=== PATIENT | male | born 1955 | race Caucasian/White ===

== ENCOUNTER 2017-10-27 11:29 | Emergency (ER) | payer OTHER ==
[2017-10-27] MEDS: ASPIRIN ENTERIC COATED 325 MG TABLET.DR. PO (12:38)
[2017-10-27] MEDS: LIDO:MAALOX:DONNATAL 1:1:1 15 ML SINGLE DOSE SWSW (12:40)
[2017-10-27 13:01] LABS: ADD MAN DIFF? NO
[2017-10-27 13:02] LABS: BASO % 1 % (0-3); EOS # 0.1 x10^3/uL (0.0-0.7); EOS % 3 % (0-3); HEMATOCRIT 42.6 % (39.0-53.0); HEMOGLOBIN 14.8 g/dL (13.0-17.5); LYMPH # 1.7 x10^3/uL (1.0-4.8); LYMPH % 34 % (24-48); MEAN CORPUSCULAR HEMOGLOBIN 33 pg (25-35); MEAN CORPUSCULAR HGB CONC 35 g/dL (31-37); MEAN CORPUSCULAR VOLUME 93 fL (79-100); MONO # 0.5 x10^3/uL (0.0-1.1); MONO % 10 % (0-9); NEUT # 2.6 x10^3uL (1.8-7.7); NEUT % 53 % (31-73); PLATELET COUNT 244 x10^3/uL (140-400); RED BLOOD COUNT 4.56 x10^6/uL (4.30-5.70); WHITE BLOOD COUNT 4.9 x10^3/uL (4.0-11.0)
[2017-10-27 13:14] LABS: ANION GAP 11 (6-14); BLOOD UREA NITROGEN 11 mg/dL (8-26); BUN/CREATININE RATIO 11 (6-20); CALCIUM 9.3 mg/dL (8.5-10.1); CARBON DIOXIDE 25 mmol/L (21-32); CHLORIDE 103 mmol/L (98-107); GFR 75.5; GLUCOSE 86 mg/dL (70-99); POTASSIUM 4.1 mmol/L (3.5-5.1); SODIUM 139 mmol/L (136-145)
[2017-10-27 13:14] LABS: ETHANOL 169 mg/dL (0-10)
[2017-10-27 13:20] LABS: ALBUMIN/GLOBULIN RATIO 0.9 (1.0-1.7); ALK PHOS 64 U/L (46-116); ALT (SGPT) 23 U/L (16-63); AST (SGOT) 17 U/L (15-37); MAGNESIUM 2.4 mg/dL (1.8-2.4); TOTAL BILIRUBIN 0.3 mg/dL (0.2-1.0); TOTAL PROTEIN 8.5 g/dL (6.4-8.2)
[2017-10-27 13:23] LABS: TROPONINI < 0.017 ng/mL (0.000-0.055)
[2017-10-27 13:25] LABS: NT-PRO BNP 59 pg/mL (0-124)
== END 2017-10-27 14:55 | disposition home or self-care (01) ==
LOC: ER 11:29
DX: J06.9 Acute upper respiratory infection, unspecified (principal); I44.7 Left bundle-branch block, unspecified; R07.89 Other chest pain; I10 Essential (primary) hypertension; F10.10 Alcohol abuse, uncomplicated
CPT/HCPCS: 36415; 71045; 80053; 83735; 83880; 84484; 85025; 93005; 99285-25; G0480

== ENCOUNTER → 2017-11-22 | Outpatient (CLI) | payer OTHER ==
[~2017-11-22] MED LIST: CONTRAST GIVEN MC
[2017-11-22] MEDS: IOHEXOL 300 MG/ML 100ML VIAL. IV (12:56)
== END | disposition home or self-care (01) ==
LOC: KCIC CT 11:46
DX: J84.10 Pulmonary fibrosis, unspecified (principal); R91.8 Other nonspecific abnormal finding of lung field
CPT/HCPCS: 71260; Q9967

== ENCOUNTER 2019-10-16 00:03 | Emergency (ER) | payer OTHER ==
[~2019-10-16] VITALS: Ht 170.2 cm; Wt 79.5 kg
[~2019-10-16 00:03] MED LIST changes: +ASPI81TA50 PO; -CONTRAST GIVEN MC; +LISI-334 PO; +LISI10TA2 PO; +LISI2.5T PO; +NITR0.4T24 SL; +SIMV10TA15 PO
[2019-10-16 00:05] VITALS: BP 140/72
[2019-10-16 00:27] LABS: BASO % 1 % (0-3); EOS # 0.2 x10^3/uL (0.0-0.7); EOS % 3 % (0-3); HEMOGLOBIN 13.3 g/dL (13.0-17.5); LYMPH # 2.7 x10^3/uL (1.0-4.8); LYMPH % 42 % (24-48); MEAN CORPUSCULAR HEMOGLOBIN 32 pg (25-35); MEAN CORPUSCULAR HGB CONC 34 g/dL (31-37); MEAN CORPUSCULAR VOLUME 94 fL (79-100); MONO # 0.8 x10^3/uL (0.0-1.1); MONO % 13 % (0-9); NEUT # 2.7 x10^3/uL (1.8-7.7); NEUT % 42 % (31-73); PLATELET COUNT 180 x10^3/uL (140-400); RED BLOOD COUNT 4.17 x10^6/uL (4.30-5.70); RED CELL DISTRIBUTION WIDTH 13.4 % (11.5-14.5); WHITE BLOOD COUNT 6.5 x10^3/uL (4.0-11.0)
[2019-10-16 00:35] LABS: CALCIUM 8.7 mg/dL (8.5-10.1); CREATININE 0.9 mg/dL (0.7-1.3); GFR 84.7; POTASSIUM 4.3 mmol/L (3.5-5.1)
[2019-10-16 00:41] LABS: ALBUMIN 3.5 g/dL (3.4-5.0); ALBUMIN/GLOBULIN RATIO 1.1 (1.0-1.7); TOTAL BILIRUBIN 0.2 mg/dL (0.2-1.0); TOTAL PROTEIN 6.8 g/dL (6.4-8.2)
--- NOTE | 2019-10-16 03:29 | RAD ---
INDICATION: Chest pain COMPARISON: September 03, 2019 FINDINGS: Single view of chest obtained. Cardiac silhouette is prominent. There is some deviation of the cardiac silhouette to the right which the patient has had on prior exams as well. Hazy opacity at the right lung base. Hypoexpanded exam. Calcified nodule right lower lung is again seen IMPRESSION: * Enlarged heart and mediastinal silhouette. Could be secondary to portable technique but cardiomegaly or pericardial effusion is not excluded. * Mild haziness right lung base could be secondary to atelectasis or infiltrate Electronically signed by: Gray Catalan MD (10/16/2019 3:26 AM) [id number]
--- NOTE | 2019-10-16 04:28 | PHYS DOC ---
Past Medical History Past Medical History: Arthritis, Hypertension Past Surgical History: Other Additional Past Surgical Histo: MANSOOR KNEE SURGERY Smoking Status: Former Smoker Alcohol Use: Heavy Drug Use: None Adult General Chief Complaint Chief Complaint: CHEST PAIN HPI HPI Patient is a 64 year old male with history of nonischemic cardiomyopathy who presents with chest pain starting 2 hours ago. Patient states he was in a verbal altercation and physically exerting himself in an aggressive manner developed substernal chest pain lasting 30 minutes. Symptoms resolved prior to arrival. Denies symptoms at this time. Patient does have nitroglycerin at home but did not take any. No other acute symptoms or complaints at this time. Denies drugs and alcohol.[] Review of Systems Review of Systems Review of symptoms as per history of present illness. All other systems were reviewed and found to be within normal limits, except as documented in this note. Allergies Allergies Allergies Coded Allergies Type Severity Reaction Last Updated Verified No Known Drug Allergies 10/27/17 No Physical Exam Physical Exam Constitutional: Well developed, well nourished, non-toxic appearance. [] HENT: Normocephalic, atraumatic, bilateral external ears normal, oropharynx moist,nose normal. [] Eyes: PERRLA, EOMI, conjunctiva normal. [] Neck: Normal range of motion. [] Cardiovascular:Heart rate regular rhythm, no murmur. [] Lungs & Thorax: Bilateral breath sounds clear to auscultation. [] Abdomen: Bowel sounds normal, soft, no tenderness. [] Skin: Warm, dry. [] Back: No tenderness. [] Extremities: No tenderness, no edema. [] Neurologic: Alert and oriented X 3, normal motor function, normal sensory function, no focal deficits noted. [] Psychologic: Affect normal, judgement normal, mood normal. [] Current Patient Data Vital Signs Vital Signs Date Time Temp Pulse Resp B/P (MAP) Pulse Ox O2 Delivery O2 Flow Rate FiO2 10/16/19 00:05 98.3 46 14 140/72 (94) 98 Room Air 98.3 Lab Values Laboratory Tests Test 10/16/19 00:15 White Blood Count 6.5 x10^3/uL (4.0-11.0) Red Blood Count 4.17 x10^6/uL (4.30-5.70) L Hemoglobin 13.3 g/dL (13.0-17.5) Hematocrit 39.0 % (39.0-53.0) Mean Corpuscular Volume 94 fL (79-100) Mean Corpuscular Hemoglobin 32 pg (25-35) Mean Corpuscular Hemoglobin Concent 34 g/dL (31-37) Red Cell Distribution Width 13.4 % (11.5-14.5) Platelet Count 180 x10^3/uL (140-400) Neutrophils (%) (Auto) 42 % (31-73) Lymphocytes (%) (Auto) 42 % (24-48) Monocytes (%) (Auto) 13 % (0-9) H Eosinophils (%) (Auto) 3 % (0-3) Basophils (%) (Auto) 1 % (0-3) Neutrophils # (Auto) 2.7 x10^3/uL (1.8-7.7) Lymphocytes # (Auto) 2.7 x10^3/uL (1.0-4.8) Monocytes # (Auto) 0.8 x10^3/uL (0.0-1.1) Eosinophils # (Auto) 0.2 x10^3/uL (0.0-0.7) Basophils # (Auto) 0.0 x10^3/uL (0.0-0.2) Sodium Level 138 mmol/L (136-145) Potassium Level 4.3 mmol/L (3.5-5.1) Chloride Level 103 mmol/L (98-107) Carbon Dioxide Level 23 mmol/L (21-32) Anion Gap 12 (6-14) Blood Urea Nitrogen 13 mg/dL (8-26) Creatinine 0.9 mg/dL (0.7-1.3) Estimated GFR (Cockcroft-Gault) 84.7 BUN/Creatinine Ratio 14 (6-20) Glucose Level 96 mg/dL (70-99) Calcium Level 8.7 mg/dL (8.5-10.1) Total Bilirubin 0.2 mg/dL (0.2-1.0) Aspartate Amino Transferase (AST) 46 U/L (15-37) H Alanine Aminotransferase (ALT) 49 U/L (16-63) Alkaline Phosphatase 55 U/L (46-116) Troponin I Quantitative < 0.017 ng/mL (0.000-0.055) Total Protein 6.8 g/dL (6.4-8.2) Albumin 3.5 g/dL (3.4-5.0) Albumin/Globulin Ratio 1.1 (1.0-1.7) Laboratory Tests 10/16/19 00:15 Laboratory Tests 10/16/19 00:15 EKG EKG [EKG: Reviewed] Radiology/Procedures Radiology/Procedures [Chest x-ray: No acute cardiopulmonary disease on preliminary ED review.] Course & Med Decision Making Course & Med Decision Making Pertinent Labs and Imaging studies reviewed. (See chart for details) [Patient's symptoms resolved. EKG, lab reviewed nondiagnostic. Will discharge home with ] Dragon Disclaimer Dragon Disclaimer This electronic medical record was generated, in whole or in part, using a voice recognition dictation system. Departure Departure Impression: Primary Impression: Chest pain Disposition: 01 HOME, SELF-CARE Condition: STABLE Patient Instructions: Chest Pain (Nonspecific), [id number] Additional Instructions: You were evaluated in the emergency department for chest pain. EKG, lab and imaging studies were performed and are nondiagnostic. 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 If chest pain returns, take nitroglycerin pill and wait 5 mins. If chest pain persists, return to the emergency department for reevaluation. ARACELI MANUEL DO Oct 16, 2019 04:28
--- NOTE | 2019-10-16 06:50 | EKG ---
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
== END 2019-10-16 02:00 | disposition home or self-care (01) ==
LOC: ER 00:03
DX: R07.2 Precordial pain (principal); I10 Essential (primary) hypertension; Z87.891 Personal history of nicotine dependence; F10.20 Alcohol dependence, uncomplicated; Y90.9 Presence of alcohol in blood, level not specified
CPT/HCPCS: 36415; 71045; 80053; 84484; 85025; 93005; 99285-25

== ENCOUNTER 2020-04-30 14:31 | Emergency (ER) | payer OTHER ==
[~2020-04-30] VITALS: Ht 170.2 cm; Wt 90.9 kg
[2020-04-30 14:39] VITALS: BP 132/77
--- NOTE | 2020-04-30 14:41 | PHYS DOC ---
Past Medical History Past Medical History: Arthritis, Hypertension Past Surgical History: Other Additional Past Surgical Histo: MANSOOR KNEE SURGERY Smoking Status: Former Smoker Alcohol Use: Heavy Drug Use: None General Adult EDM: Chief Complaint: CHEST PAIN HPI: HPI: Patient is a 64 year old male who was brought here by EMS due to substernal chest pain. Patient was walking outside in the parking lot at [facility] looking for his car for a long time when he started having trouble breathing and chest pain. EMS were called, they gave him 324 mg aspirin and brought him here for evaluation. Patient said the pain is subsided a little bit now. Patient denies any cough or fever. Patient denies any nausea vomiting Review of Systems: Review of Systems: Constitutional: Denies fever or chills. [] Eyes: Denies change in visual acuity. [] HENT: Denies nasal congestion or sore throat. [] Respiratory: Denies cough or shortness of breath. [] Cardiovascular: Denies chest pain or edema. [] GI: Denies abdominal pain, nausea, vomiting, bloody stools or diarrhea. [] : Denies dysuria. [] Musculoskeletal: Denies back pain or joint pain. [] Integument: Denies rash. [] Neurologic: Denies headache, focal weakness or sensory changes. [] Endocrine: Denies polyuria or polydipsia. [] Lymphatic: Denies swollen glands. [] Psychiatric: Denies depression or anxiety. [] Heart Score: HEART Score for Chest Pain: HEART Score for Chest Pain Response (Comments) Value History Moderately Suspicious 1 ECG Nonspecific Repolarizatio 1 Age > 65 2 Risk Factors >3 Risk Factors or Hx CAD 2 Troponin < Normal Limit 0 Total 6 Risk Factors: Risk Factors: DM, Current or recent (<one month) smoker, HTN, HLP, family history of CAD, obesity. Risk Scores: Score 0 - 3: 2.5% MACE over next 6 weeks - Discharge Home Score 4 - 6: 20.3% MACE over next 6 weeks - Admit for Clinical Observation Score 7 - 10: 72.7% MACE over next 6 weeks - Early Invasive Strategies Allergies: Allergies: Allergies Coded Allergies Type Severity Reaction Last Updated Verified No Known Drug Allergies 10/27/17 No Physical Exam: PE: Constitutional: Well developed, well nourished, no acute distress, non-toxic appearance. [] HENT: Normocephalic, atraumatic, bilateral external ears normal, oropharynx [address], no oral exudates, nose normal. [] Eyes: PERRLA, EOMI, conjunctiva normal, no discharge. [] Neck: Normal range of motion, no tenderness, supple, no stridor. [] Cardiovascular:Heart rate regular rhythm, no murmur [] Lungs & Thorax: Bilateral breath sounds clear to auscultation [] Abdomen: Bowel sounds normal, soft, no tenderness, no masses, no pulsatile masses. [] Skin: Warm, dry, no erythema, no rash. [] Back: No tenderness, no CVA tenderness. [] Extremities: No tenderness, no cyanosis, no clubbing, ROM intact, no edema. [] Neurologic: Alert and oriented X 3, normal motor function, normal sensory function, no focal deficits noted. [] Psychologic: Affect normal, judgement normal, mood normal. [] Current Patient Data: Labs: Laboratory Tests Test 04/30/20 14:39 White Blood Count 5.6 x10^3/uL Red Blood Count 4.15 x10^6/uL Hemoglobin 13.6 g/dL Hematocrit 39.3 % Mean Corpuscular Volume 95 fL Mean Corpuscular Hemoglobin 33 pg Mean Corpuscular Hemoglobin Concent 35 g/dL Red Cell Distribution Width 13.8 % Platelet Count 194 x10^3/uL Neutrophils (%) (Auto) 45 % Lymphocytes (%) (Auto) 39 % Monocytes (%) (Auto) 13 % Eosinophils (%) (Auto) 2 % Basophils (%) (Auto) 1 % Neutrophils # (Auto) 2.5 x10^3/uL Lymphocytes # (Auto) 2.2 x10^3/uL Monocytes # (Auto) 0.7 x10^3/uL Eosinophils # (Auto) 0.1 x10^3/uL Basophils # (Auto) 0.0 x10^3/uL Prothrombin Time 13.0 SEC Prothromb Time International Ratio 1.0 Activated Partial Thromboplast Time 28 SEC Sodium Level 136 mmol/L Potassium Level 3.8 mmol/L Chloride Level 101 mmol/L Carbon Dioxide Level 21 mmol/L Anion Gap 14 Blood Urea Nitrogen 6 mg/dL Creatinine 0.8 mg/dL Estimated GFR (Cockcroft-Gault) 97.0 BUN/Creatinine Ratio 8 Glucose Level 94 mg/dL Calcium Level 8.5 mg/dL Magnesium Level 2.3 mg/dL Total Bilirubin 0.3 mg/dL Aspartate Amino Transf (AST/SGOT) 21 U/L Alanine Aminotransferase (ALT/SGPT) 28 U/L Alkaline Phosphatase 55 U/L Troponin I Quantitative < 0.017 ng/mL [id number] Natriuretic Peptide 75 pg/mL Total Protein 7.7 g/dL Albumin 3.8 g/dL Albumin/Globulin Ratio 1.0 Lipase 110 U/L Ethyl Alcohol Level 215 mg/dL EKG: EKG: EKG was done at 1437, heart rate 98 bpm right bundle branch block no ST segment elevation. Radiology/Procedures: Radiology/Procedures: [][facility] [address] [place] [address] IMAGING REPORT Signed PATIENT: ROBERT VENEGAS ACCOUNT: [id number] : 1955 LOCATION: ER AGE: 64 SEX: M EXAM STATUS: REG ER ORD. PHYSICIAN: LEANDRO CROW DO REASON: CHEST PAIN PROCEDURE: PORTABLE CHEST 1V PORTABLE CHEST 1V History: Reason: CHEST PAIN / Spl. Instructions: / History: Comparison: October 16, 2019 Findings: Low lung volumes. No consolidation or pleural effusion. Normal heart size. No pneumothorax. Left-sided pacemaker with RA and RV leads. The RV lead appears to have a tortuous course distally. Right basilar calcified pulmonary nodule, likely prior granulomatous disease. Impression: 1. No acute cardiopulmonary process. 2. Left sided pacemaker. Recommend interrogation to evaluate for properly position. Electronically signed by: Andrew George DO (04/30/2020 3:11 PM) [id number] DICTATED and SIGNED BY: NADREW GEORGE DO DATE: 04/30/20 1511 Course & Med Decision Making: Course & Med Decision Making Pertinent Labs and Imaging studies reviewed. (See chart for details) Patient is a 64-year-old male who presented to ER today for exertional dyspnea with chest pain, patient was recommended by this physician that he need to be admitted to hospital for cardiology evaluation. Patient adamantly declined admission, he said he want to go home today and closely with cardiology tomorrow. Patient is here with him. Patient is awake alert oriented, he is medically competent to decline medical treatment. Aware that his blood alcohol level at 200, however he is awake alert oriented he was able to walk without a problem, denies suicidal ideation. Patient will sign out AGAINST MEDICAL ADVICE. Dragon Disclaimer: Dragon Disclaimer: This electronic medical record was generated, in whole or in part, using a voice recognition dictation system. Departure Departure Impression: Primary Impression: Chest pain Disposition: AGAINST MEDICAL ADVICE Condition: STABLE Referrals: MARISA QUEVEDO MD (PCP) Patient Instructions: Discharge Against Medical Advice Additional Instructions: Patient does not wish to proceed with medical care recommended by ( Polo). Patient given information related to possible complications, up to and including , which could occur as a result of leaving the hospital at this time. Patient verbalizes understanding of risks involved due to leaving against medical advice. Patient has singned AMA form. Justicifation of Admission Dx: Justifications for Admission: Justification of Admission Dx: N/A LEANDRO CROW DO Apr 30, 2020 14:41
[2020-04-30 14:49] LABS: BASO % 1 % (0-3); EOS # 0.1 x10^3/uL (0.0-0.7); EOS % 2 % (0-3); HEMATOCRIT 39.3 % (39.0-53.0); HEMOGLOBIN 13.6 g/dL (13.0-17.5); LYMPH # 2.2 x10^3/uL (1.0-4.8); LYMPH % 39 % (24-48); MEAN CORPUSCULAR HEMOGLOBIN 33 pg (25-35); MEAN CORPUSCULAR HGB CONC 35 g/dL (31-37); MEAN CORPUSCULAR VOLUME 95 fL (79-100); MONO # 0.7 x10^3/uL (0.0-1.1); MONO % 13 % (0-9); NEUT # 2.5 x10^3/uL (1.8-7.7); NEUT % 45 % (31-73); PLATELET COUNT 194 x10^3/uL (140-400); RED BLOOD COUNT 4.15 x10^6/uL (4.30-5.70); RED CELL DISTRIBUTION WIDTH 13.8 % (11.5-14.5); WHITE BLOOD COUNT 5.6 x10^3/uL (4.0-11.0)
[2020-04-30 14:58] LABS: CALCIUM 8.5 mg/dL (8.5-10.1); CREATININE 0.8 mg/dL (0.7-1.3); POTASSIUM 3.8 mmol/L (3.5-5.1)
--- NOTE | 2020-04-30 14:58 | EKG ---
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
[2020-04-30 15:03] LABS: ALBUMIN 3.8 g/dL (3.4-5.0); MAGNESIUM 2.3 mg/dL (1.8-2.4); TOTAL BILIRUBIN 0.3 mg/dL (0.2-1.0); TOTAL PROTEIN 7.7 g/dL (6.4-8.2)
--- NOTE | 2020-04-30 15:15 | RAD ---
PORTABLE CHEST 1V History: Reason: CHEST PAIN / Spl. Instructions: / History: Comparison: October 16, 2019 Findings: Low lung volumes. No consolidation or pleural effusion. Normal heart size. No pneumothorax. Left-sided pacemaker with RA and RV leads. The RV lead appears to have a tortuous course distally. Right basilar calcified pulmonary nodule, likely prior granulomatous disease. Impression: 1. No acute cardiopulmonary process. 2. Left sided pacemaker. Recommend interrogation to evaluate for properly position. Electronically signed by: Andrew George DO (04/30/2020 3:11 PM) [id number]
== END 2020-04-30 15:32 | disposition left against medical advice (07) ==
LOC: ER 14:31
DX: M19.90 Unspecified osteoarthritis, unspecified site (principal); I10 Essential (primary) hypertension; F10.10 Alcohol abuse, uncomplicated; Z98.890 Other specified postprocedural states; Z87.891 Personal history of nicotine dependence
CPT/HCPCS: 36415; 71045; 80053; 83690; 83735; 83880; 84484; 85025; 85610; 85730; 93005; 99285; G0480